=== PATIENT | female | born 1965 | race Caucasian/White ===

== ENCOUNTER 2020-03-09 15:03 | Outpatient (REF) | payer MEDICAID, OTHER, SELFPAY | END 2020-03-09 15:04 | disposition home or self-care (01) | LOC: HO.LAB 15:03 | PROVIDERS: Visit Provider Internal Medicine | DX: Z20.828 Contact with and (suspected) exposure to other viral communicable diseases (principal) | CPT/HCPCS: C9803; U0003 ==

== ENCOUNTER 2023-10-22 23:16 | Emergency (ER) | payer MEDICAID, SELFPAY ==
--- NOTE | 2023-10-22 | ECG_ITS ---
Test Reason : CHEST PAIN Blood Pressure : / mmHG Vent. Rate : 065 BPM Atrial Rate : 065 BPM P-R Int : 214 ms QRS Dur : 106 ms QT Int : 418 ms P-R-T Axes : 039 023 057 degrees QTc Int : 434 ms Sinus rhythm with 1st degree A-V block Otherwise normal ECG No previous ECGs available Referred By: Generic ED Physician Electronically Signed By:JOYA HERNANDEZ
--- NOTE | ~2023-10-22 | XR_ITS ---
EXAMINATION: XR CHEST CLINICAL INFORMATION: Chest pain. COMPARISON: 05/01/2017. TECHNIQUE: Frontal view of the chest was obtained. FINDINGS: No significant abnormality is noted involving the heart, lungs, mediastinum, bony thorax or soft tissues. XR/XR chest 1V IMPRESSION: Unremarkable examination.
[2023-10-22 23:47] VITALS: BP 136/72; PULSE 65; RESP 18; TEMP 36.6; O2SAT 98; BMI 29.0
[2023-10-23 00:18] VITALS: BP 128/69; PULSE 60; RESP 14; TEMP 37; O2SAT 96
[2023-10-23 00:20] LABS: Hematocrit 39.4 % (37.0-47.0); Hemoglobin 12.5 g/dl (12.0-16.0); Mean Corpuscular HGB Conc 31.7 g/dl (31.0-35.0); Mean Corpuscular Hemoglobin 27.4 pg (27.0-33.0); Mean Corpuscular Volume 86.4 fL (80.0-98.0); Mean Platelet Volume 10.8 fL (9.4-12.3); Platelet Count 311 X10*3/uL (160-400); Red Blood Count 4.56 X10*6/uL (4.20-5.50); Red Cell Distribution Width 14.4 % (11.0-16.0); White Blood Count 6.3 X10*3/uL (4.8-10.8)
[2023-10-23 00:30] LABS: Alanine Aminotransferase 21 U/L (0-31); Alkaline Phosphatase 75 U/L (39-117); Anion Gap 12 (12-20); Aspartate Amino Transferase 17 U/L (5-31); Bilirubin Total 0.2 mg/dL (0.0-1.0); Blood Urea Nitrogen 14 mg/dL (9-16); Calcium 8.9 mg/dL (8.4-10.2); Carbon Dioxide 24 mmol/L (22-29); Chloride 106 mmol/L (96-108); Creatinine Clr Calc Pharmacy 60.7; Estimated Glomerular Filt Rate 53; Glucose Random 333 mg/dL (60-115); Potassium 4.1 mmol/L (3.3-5.1); Sodium 138 mmol/L (135-145); Total Protein 7.9 g/dL (6.5-8.0)
[2023-10-23 00:34] LABS: INTERNATIONAL NORM RATIO 0.9 (0.9-1.1); Prothrombin Time 10.4 SEC (11.1-13.3)
[2023-10-23 00:37] LABS: Troponin-I High Sensitivity < 2.7 ng/L (<3.5-17.0)
[2023-10-23 00:52] VITALS: PULSE 63
--- NOTE | 2023-10-23 01:17 | ED_ITS ---
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 Burton HPI narrative: 58-year-old female speaking came in for evaluation of 3 days of neck pain radiates to the upper back and left side of the chest. Pain was described as constant for the last 3 days, more at nighttime, pain is worsen with turning the head especially to the right side or if try to raise left arm above the head, otherwise no weakness, no numbness, patient feels short of breath if the pain shoot down suddenly when she moves her head unintentionally. No recent trauma, no recent strenuous activity, no recent heavy lifting. No recent travel, no recent prolonged immobilization, no lower extremity swelling or tenderness. Related Data Previous Rx's ?Medication ?Instructions ?Recorded oxycodone 5 mg tablet 5 mg PO Q8H PRN pain #10 tabs 10/23/23 Allergies Allergy/AdvReac Type Severity Reaction Status Date / Time penicillin G Allergy Unknown rash Verified 10/23/23 01:21 Penicillins [PENICILLINS] Allergy Unknown RASH Verified 10/23/23 01:21 Review of Systems 2 Review of Systems: All other systems are reviewed and are negative Constitutional: Reports as per HPI and Reports no additional constitutional complaints Eyes: Reports as per HPI and Reports no additional eye complaints Reports system reviewed and no additional complaints, except as documented Cardiovascular: Reports as per HPI and Reports no additional cardiovascular complaints Respiratory: Reports as per HPI and Reports no additional respiratory complaints Gastrointestinal: Reports as per HPI and Reports no additional gastrointestinal complaints Genitourinary: Reports no additional female genitourinary complaints Musculoskeletal: Reports no additional musculoskeletal complaints Skin/Breast: Reports system reviewed and no additional complaints, except as docu Psychiatric: Reports no additional psychiatric complaints Endocrine: Reports no additional endocrine complaints Hematologic/Lymphatic: Reports no additional hematologic/lymphatic complaints Allergic/Immunologic: Reports no additional allergic/immunologic complaints Reports system reviewed and no additional complaints, except as documented and Reports Abnormal speech present [facility] Social History Social History Smoked in Last 30 Days: No Use of substances other than those prescribed or required for medical reasons: No Do you have a plan to hurt others: No Plan Patient : No Physical Exam 2 Vital Signs: Vital Signs: Last Vital Signs Temp 98.6 F 10/23/23 00:18 Pulse 60 10/23/23 00:18 Resp 14 10/23/23 00:18 BP 128/69 10/23/23 00:18 Pulse Ox 96 10/23/23 00:18 O2 Del Method Room Air 10/23/23 00:18 BMI result Body Mass Index 29.0 Vital signs have been reviewed and appear to be correct. Blood pressure elevated. Heart rate normal. Respiratory rate normal. Temperature normal. Oxygen saturation normal. Appearance: Alert. Oriented X3. No acute distress. Head: Normal external exam. Normocephalic. Atraumatic. No Rm signs noted. No raccoon eyes noted Eyes: PERRLA. EOMI. Conjunctiva and sclera normal. Eyelids normal. ENT: TM's Normal. Pharynx normal. Uvula midline. Moist mucous membranes. No trismus noted. No drooling noted. No muffled voice noted. Neck: Normal inspection, increase pain to the left chest and left upper back when turning head to the right or try to elevate left above the head. CVS: Normal heart rate and rhythm. Heart sound normal. No murmurs noted. Pulses normal throughout. Respiratory: No respiratory distress. Painless inspiration. Breath sounds normal. No wheezes/rales/rhonchi noted. Chest nontender. No accessory muscle usage noted or decreased air movement noted. Abdomen: Soft and nontender. Bowel sounds normal in all 4 quadrants. No distention noted. No organomegaly noted. No visible injury noted. Back: No CVA tenderness. Full range of motion noted. Skin: Skin warm and dry. Normal skin color. Normal skin turgor. No rashes/lesions/lacerations noted. Extremities: No lower extremity edema. Extremities exhibit normal range of motion. Extremities nontender. Neuro: Oriented X 3. Cranial nerve exam: II-XII are grossly intact No motor deficit. No sensory deficit. Reflexes normal. Course Reevaluation(s) Reevaluation #1: Constant left chest pain and left upper back pain for the last 3 days physical exam reveals possible left cervical radiculopathy with no neurological deficit, patient feels much better after injection of Toradol and Dilaudid. Labs, EKG showed no concern of ACS or pulmonary embolism. Hyperglycemia patient with known history of diabetes controlled with Jardiance, patient was given metformin 1000 mg orally in the emergency department and was instructed to follow-up with her PCP for further management. Time: 02:22 Medications Administered Discontinued Medications Generic Name Dose Route Start Last Admin Trade Name Marcoq PRN Reason Stop Dose Admin Hydromorphone HCl 1 mg 10/23/23 01:17 10/23/23 01:29 Hydromorphone Hcl 1 Mg/Ml Syringe IM 10/23/23 01:18 1 mg ONCE ONE Administration Protocol Ketorolac Tromethamine 60 mg 10/23/23 01:17 10/23/23 01:28 Ketorolac Tromethamine 60 Mg/2 Ml Vial IM 10/23/23 01:18 60 mg ONCE ONE Administration Metformin HCl 1,000 mg 10/23/23 02:07 10/23/23 02:14 Metformin Hcl 1,000 Mg Tablet PO 10/23/23 02:08 1,000 mg ONCE ONE Administration Medical Decision Making Differential Diagnosis Differential Diagnoses: The differential diagnosis associated with the presentation includes (ACS, pulmonary embolism, pneumonia, pleural effusion, pneumothorax, electrolyte derangement, severe anemia, myofascial chest pain, cervical radiculopathy.) Admission/Observation Consideration of admission/observation: Escalation of care including admission/observation considered Lab Data MDM Lab Attestation statement: I reviewed the patient's lab results. 10/23/23 00:06 10/23/23 00:06 Labs: Lab Results 10/23/23 Range/Units 00:06 WBC 6.3 (4.8-10.8) X10*3/uL RBC 4.56 (4.20-5.50) X10*6/uL Hgb 12.5 (12.0-16.0) g/dl Hct 39.4 (37.0-47.0) % MCV 86.4 (80.0-98.0) fL MCH 27.4 (27.0-33.0) pg MCHC 31.7 (31.0-35.0) g/dl RDW 14.4 (11.0-16.0) % Plt Count 311 (160-400) X10*3/uL MPV 10.8 (9.4-12.3) fL Absolute Nucleated RBC 0.000 (0.0-0.012) X10*3/uL Nucleated RBC % (auto) 0.0 (0.0-0.2) /100WBC PT 10.4 L (11.1-13.3) SEC INR 0.9 (0.9-1.1) Sodium 138 (135-145) mmol/L Potassium 4.1 (3.3-5.1) mmol/L Chloride 106 (96-108) mmol/L Carbon Dioxide 24 (22-29) mmol/L Anion Gap 12 (12-20) BUN 14 (9-16) mg/dL Creatinine 1.06 (0.5-1.4) mg/dL Estim Creat Clear Calc 60.7 Estimated GFR 53 Random Glucose 333 H (60-115) mg/dL Calcium 8.9 (8.4-10.2) mg/dL Total Bilirubin 0.2 (0.0-1.0) mg/dL AST 17 (5-31) U/L ALT 21 (0-31) U/L Alkaline Phosphatase 75 (39-117) U/L Troponin I High Sens < 2.7 (<3.5-17.0) ng/L Total Protein 7.9 (6.5-8.0) g/dL Albumin 4.0 (3.5-5.0) g/dL Independent Interpretation I performed an independent interpretation of an: EKG (Normal sinus rhythm at 65 beats per minute, first-degree AV block otherwise unremarkable intervals, no ischemic ST-T changes, no old EKG to compare.) and Plain X-Ray (Chest: Unremarkable examination.) Radiology Impression Discussion of test interpretation with radiology: I have reviewed the radiologist's reading. Chronic Conditions Patient?s care impacted by: Diabetes Discharge Plan Discharge Clinical Impression: Cervical radiculopathy Patient Disposition: Home, Self-Care Instructions: Cervical Radiculopathy (ED) Prescriptions: New oxycodone 5 mg tablet 5 mg PO Q8H PRN (Reason: pain) Qty: 10 0RF Rx Instructions: Partial Fill upon patient request. Referrals: Obdulia Hsieh NP [Primary Care Provider] - Print Language: Hebrew
[2023-10-23] MEDS: Ketorolac Tromethamine 60 MG/2 ML VIAL IM (01:28)
[2023-10-23] MEDS: HYDROmorphone HCl 1 MG/ML SYRINGE IM (01:29)
[2023-10-23] MEDS: metFORMIN HCl 1,000 MG TABLET 1000 MG PO (02:14)
[2023-10-23 02:30] VITALS: BP 128/69; PULSE 60; RESP 14; TEMP 37; O2SAT 96
--- OUTSIDE RECORDS SUMMARY | 2023-10-23 02:38 | XMS_ITS | Continuity of Care Document ---
Author Organization [facility] Address [address] [place] [address]- Care Team Providers Care [employer] Driver Name Role Phone Wilfredo Tubbs MD Primary Care Physician Encounter 08/07/20 - 08/19/20 [facility] [address], [facility] [address] [place] [address]- Attending Physician: Hilario Alfaro Admitting Physician: Hilario Alfaro Referring Physician: Hilario Alfaro
== END 2023-10-23 02:38 | disposition home or self-care (01) ==
PROVIDERS: Emergency Provider Emergency Medicine; PCP Emergency Medicine
DX: M54.12 Radiculopathy, cervical region (principal); R07.89 Other chest pain; M54.50 Low back pain, unspecified; M54.2 Cervicalgia; Z79.899 Other long term (current) drug therapy
CPT/HCPCS: 36415; 71045; 80053; 84484; 85027; 85610; 93005; 96372; 99285; J1170; J1885

== ENCOUNTER → 2023-10-22 23:50 | Outpatient (BNV) | payer MEDICAID, SELFPAY | PROVIDERS: Emergency Provider Emergency Medicine; PCP Emergency Medicine; Visit Provider Internal Medicine | DX: R07.9 Chest pain, unspecified (principal) | CPT/HCPCS: 93010 ==